=== PATIENT | male | born 1955 | race Caucasian/White ===

== ENCOUNTER → 2016-05-21 | Outpatient (CLI) | payer BC ==
--- NOTE | 2016-05-21 19:57 | MR ---
EXAMINATION TYPE: MR shoulder RT wo con DATE OF EXAM: 05/21/2016 7:42 PM COMPARISON: NONE HISTORY: Right shoulder pain TECHNIQUE: Multiplanar, multisequence imaging of the right shoulder is performed without contrast. FINDINGS: Rotator Cuff: There is diffuse intrasubstance signal thickening of the distal margin of the infraspin atus and supraspinatus tendons compatible with severe tendinosis. There is a through thickness partia l tear involving the anterior fibers of the supraspinatus tendon measuring 1.4 x 0.9 cm. No significa nt retraction. Intrasubstance degeneration and tear within the infraspinatus tendon suspected. No thr ough thickness tear. Acromioclavicular Joint: Hypertrophic change of the AC joint is noted. This does resolve impression m ass effect upon the supraspinatus tendon and muscle. Glenohumeral Joint: There is elevation of the humerus relative to the glenoid. Tiny amount of fluid n oted within the joint space. Labrum: There is abnormal morphology appears anterior labrum suggestive of a SLAP tear. Additionally appears to be Labral cyst along the inferior margin of the posterior inferior labrum. Findings suggestive of tear. Biceps Tendon: There is increased fluid surrounding the biceps tendon which remains within the bicipi nadira groove. There appears to be increased intrasubstance signal within the intracapsular portion of t he tendon compatible severe tendinosis or partial intrasubstance tear. Bone marrow signal: A cystic change involving the humeral head. IMPRESSION: 1. Severe tendinosis of the supraspinatus and infraspinatus tendons with partial through thickness te ar measuring 1.5 x 0.9 cm anterior fibers supraspinatus tendon. Intrasubstance degeneration and parti al tear of the infraspinatus with no retraction. 2. SLAP tear 3. Labral cyst along the inferior margin of the glenoid suggestive of inferior labral tear. 4. Bicipital tendinosis. Intrasubstance tear involving the intracapsular portion of the tendon suspec eddy. No retraction.
== END | disposition home or self-care (01) ==
LOC: RADMRIMAIN 18:44
PROVIDERS: ATTEND Family Medicine
DX: S43.431A Superior glenoid labrum lesion of right shoulder, initial encounter (principal); M67.813 Other specified disorders of tendon, right shoulder

== ENCOUNTER → 2017-05-29 | Outpatient (CLI) | payer BC ==
[2017-05-29 08:54] LABS: Blood Urea Nitrogen 17 mg/dL (9-20)
--- NOTE | 2017-05-29 10:28 | CT ---
EXAMINATION TYPE: CT abdomen pelvis w con DATE OF EXAM: 05/29/2017 COMPARISON: 12/08/2011 HISTORY: Umbilical hernia CT DLP: 1618.6 mGycm Automated exposure control for dose reduction was used. CONTRAST: CT scan of the abdomen pelvis is performed with IV Contrast, patient injected with 100 mL of Isovue 3 00. FINDINGS- LUNG BASES-the heart is prominent. LIVER/GB-postcholecystectomy changes noted. Area of low attenuation involving the left lobe liver mos t likely related to focal area of fatty infiltration and appears to be increased from prior exam PANCREAS- No gross abnormality is seen. SPLEEN- No gross abnormality is seen. ADRENALS- No gross abnormality is seen. KIDNEYS/BLADDER- no hydronephrosis nephrolithiasis or renal mass. BOWEL-bowel gas pattern nonspecific. Fatty replacement of the bowel within the right colon is stable from the previous exam is a nonspecific finding can be associated with certainty conditions including inflammatory bowel disease. Diverticulosis of the sigmoid colon noted.. LYMPH NODES- No greater than 1cm abdominal or pelvic lymph nodes. OSSEOUS STRUCTURES- No significant abnormality is seen. Hypertrophic change and degenerative change of the spine noted. OTHER- along the medial margin of the rectus abdominal muscle on the right there is a fascial defect with herniation of intraperitoneal fat into the subcutaneous tissues compatible with a hernia. Previous surgery involving the left inguinal region noted with abnormal attenuation likely in the bas is of postsurgical scar. IMPRESSION- 1. There is an anterior abdominal wall hernia along the medial margin of the right rectus muscle cont aining peritoneal fat. No bowel contained. The neck of the hernia measures approximately 1.2 cm. 2. Fatty replacement of the wall the right colon stable from the previous exam of 2011 is a nonspeci fic finding. This can be associated with certain conditions including inflammatory bowel disease jenifer elate clinically. 3. There is a area of low attenuation in the left lobe of the liver most likely in the basis of focal fatty infiltration. This appears increased from the prior exam and could be correlated with ultrasou nd as clinically warranted.
== END | disposition home or self-care (01) ==
LOC: RADCTMAIN 07:54
PROVIDERS: ATTEND Surgery
DX: K43.9 Ventral hernia without obstruction or gangrene (principal); R93.2 Abnormal findings on diagnostic imaging of liver and biliary tract
CPT/HCPCS: 82565; 84520; 74177; 36415; Q9967

== ENCOUNTER → 2017-07-01 | Outpatient (CLI) | payer BC ==
[2017-07-01 12:56] LABS: HCT 49.1 % (39.0-53.0); HGB 15.8 gm/dL (13.0-17.5); MCH 28.4 pg (25.0-35.0); MCHC 32.2 g/dL (31.0-37.0); MCV 88.3 fL (80.0-100.0); Mean Platelet Volume 7.6; Platelet Count 251 k/uL (150-450); RBC 5.56 m/uL (4.30-5.90); RDW 13.2 % (11.5-15.5); WBC 7.9 k/uL (3.8-10.6)
[2017-07-01 13:12] LABS: ALT 17 U/L (21-72); AST 20 U/L (17-59); Albumin 4.3 g/dL (3.5-5.0); Alkaline Phosphatase 72 U/L (38-126); Anion Gap 14 mmol/L; Blood Urea Nitrogen 16 mg/dL (9-20); Calcium 9.4 mg/dL (8.4-10.2); Carbon Dioxide 30 mmol/L (22-30); Chloride 101 mmol/L (98-107); Glucose 91 mg/dL (74-99); Potassium 4.3 mmol/L (3.5-5.1); Sodium 145 mmol/L (137-145); Total Bilirubin 0.6 mg/dL (0.2-1.3); Total Protein 7.2 g/dL (6.3-8.2)
== END | disposition home or self-care (01) ==
LOC: LABWHC1 12:06
PROVIDERS: ATTEND Internal Medicine Cardiovascular Disease
DX: I50.9 Heart failure, unspecified (principal); I42.9 Cardiomyopathy, unspecified
CPT/HCPCS: 36415; 80053; 83880; 85027

== ENCOUNTER 2017-07-06 09:21 | Day surgery (SDC) | payer BC ==
[2017-07-01 15:57] VITALS: BMI 31.6
[~2017-07-06 09:21] MED LIST: ALPRAZolam 0.25 MG TAB PO PRN; ASPIRIN 325 MG TAB PO ONE; SODIUM CHLORIDE 0.9% 1,000 ML in EMPTY BAG 1 BAG IV ONE
[2017-07-06 09:39] VITALS: TEMP 97.7
[2017-07-06] MEDS ORDERED: fentaNYL (PF) 50 MCG/ML 2 ML AMP ONE (10:10)
[2017-07-06] MEDS ORDERED: MIDAZOLAM 2 MG/2 ML VIAL ONE (10:10)
[2017-07-06] MEDS ORDERED: fentaNYL (PF) 50 MCG/ML 2 ML AMP IV ONE (10:18)
[2017-07-06] MEDS ORDERED: MIDAZOLAM 2 MG/2 ML VIAL IV ONE (10:19)
[2017-07-06] MEDS ORDERED: LIDOCAINE 2% INJ 20 MG/ML SQ ONE (10:22)
[2017-07-06] MEDS ORDERED: IOPAMIDOL-300 50ML BTL INJ ONE (10:36)
[2017-07-06] MEDS ORDERED: IOPAMIDOL-370 125ML BTL INJ ONE (10:38)
[2017-07-06] MEDS ORDERED: RX INFO: IV CONTRAST WAS GIVEN 1 EACH MISC MISCELLANE PRN (10:56)
[2017-07-06] MEDS ORDERED: SODIUM CHLORIDE 0.9% 1,000 ML IV SCH (11:00)
--- NOTE | 2017-07-06 11:15 | P.PCN ---
Date of Procedure: 07/06/17 Preoperative Diagnosis: Cardiomyopathy, CHF, family history of ischemic or disease Postoperative Diagnosis: Cardiomyopathy, ischemic heart disease with a critical lesion in the PDA and intermittent disease in the proximal and mid LAD Procedure(s) Performed: Left heart catheterization with left ventriculography Description of Procedure: HISTORY: This is a 61-year-old gentleman with history of coronary artery disease in the family who was recently going to have hernia operation and was noted to have frequent PVCs. Patient echocardiogram showed an ejection fraction of 30-35%. Patient had similar findings into thousand 15. Patient was initiated on Coreg, Aldactone and and lisinopril. He is advised to have cardiac catheterization to rule out underlying ischemic heart disease. CONSENT:I have discussed the risks, benefits and alternative therapies for the above-mentioned procedure and for both sedation/analgesia as well as necessary blood product administration, if indicated, as they pertain to this patient. The patient has indicated understanding and acceptance of the risks and procedures discussed. [] PROCEDURE: Patient was brought to the lab in a fasting state. Patient was given some IV sedation. The right groin is infiltrated with lidocaine and right femoral artery was entered using Seldinger technique. A 6-Romansh catheter was left in place and selective coronary arteriography and left ventriculography was performed. Patient tolerated the procedure well. Femoral angiogram was performed and Manual compression was applied for hemostasis. No immediate complications were noted and patient was transferred to [facility] in a stable condition Conscious Sedation: Versed 1mg Fentanyl 50 g Duration []minutes HEMODYNAMICS: The aortic pressure is about 110/70. The left ventricular end- diastolic pressure is 20.There was no gradient across the aortic valve. SELECTIVE CORONARY ARTERIOGRAPHY: LEFT MAIN: Normal length and at 3 of any occlusive disease. THE LEFT ANTERIOR DESCENDING CORONARY ARTERY: There is calcification noted in the proximal segment. There appears to be diffuse disease involving the proximal and mid LAD with about 40-50% luminal narrowing. There is a suspicion lesion of the origin of the diagonal but doesn't appear to be critical.The diagonal branch is a large caliber vessel and has mild disease proximally. THE LEFT CIRCUMFLEX AND IS CORONARY ARTERY: This is a moderate caliber vessel and seemed to be free of any significant focal disease THE RIGHT CORONARY ARTERY: This is a dominant vessel giving rise to good-sized PDA branch. The PDA branch has 70-80% stenosis in the midportion. Beyond the lesion the vessel has a limited distribution. LEFT VENTRICULOGRAPHY: Showed a dilated left ventricle with generalized hypokinesia with an ejection fraction about 25 to 30% FINAL IMPRESSION: #1. Nonischemic cardiomyopathy. #2. Coronary artery disease involving the LAD and also PDA of the RCA. The LAD lesion and appears to be intermediate. The RCA lesion is a significant but beyond the lesion, There appears to be limited distribution. PLAN:Discussed with Dr. SHANTI Owens who is the on-call mortgage originator. It was felt that we'll continue maximal medical therapy and evaluate him by stress test to see if there is any ischemic burden. If there is a significant ischemic burden either in the RCA or LAD distribution, interventional be entertained. Patient also may be candidate for AICD implantation. If the LV function doesn't improve with medical therapy. PROGNOSIS: Guarded
[2017-07-06] MEDS ORDERED: MORPHINE SULFATE 4 MG/0.8 ML SYRINGE (INJ) IVP STA (13:30)
[2017-07-06] MEDS ORDERED: MORPHINE SULF 5MG/10ML VL ONE (13:36)
[2017-07-06 13:50] VITALS: BP 109/72; PULSE 77; RESP 18
== END 2017-07-06 18:20 | disposition home or self-care (01) ==
LOC: CATHCVL 09:21
PROVIDERS: ATTEND Internal Medicine Cardiovascular Disease
DX: I25.10 Atherosclerotic heart disease of native coronary artery without angina pectoris (principal); I25.84 Coronary atherosclerosis due to calcified coronary lesion; Z87.891 Personal history of nicotine dependence; I50.22 Chronic systolic (congestive) heart failure; I49.3 Ventricular premature depolarization; Z82.49 Family history of ischemic heart disease and other diseases of the circulatory system; I42.9 Cardiomyopathy, unspecified; Z79.899 Other long term (current) drug therapy
CPT/HCPCS: 93458; C1894; C1769; J2001; J2250; J3010; Q9967 ×2; J2270

== ENCOUNTER → 2017-08-28 | Outpatient (CLI) | payer BC | END | disposition home or self-care (01) | LOC: LABWHC1 12:26 | DX: I42.0 Dilated cardiomyopathy (principal); I49.3 Ventricular premature depolarization; I10 Essential (primary) hypertension; I25.10 Atherosclerotic heart disease of native coronary artery without angina pectoris | CPT/HCPCS: 36415; 80048 ==

== ENCOUNTER 2017-11-02 11:19 | Day surgery (SDC) | payer BC ==
[2017-10-28 10:27] VITALS: BMI 33.5
[~2017-11-02 11:19] MED LIST changes: -ALPRAZolam 0.25 MG TAB PO PRN; -ASPIRIN 325 MG TAB PO ONE; +MIDAZOLAM 2 MG/2 ML VIAL IV PRN; -SODIUM CHLORIDE 0.9% 1,000 ML in EMPTY BAG 1 BAG IV ONE; +ceFAZolin 1,000 MG in SODIUM CHLORIDE 0.9% IRRIGATIO 250 ML IRRIGATION ONE; +ceFAZolin IN SWFI 2 GM/20 ML SYRINGE IVP ONE; +fentaNYL (PF) 50 MCG/ML 2 ML AMP IV PRN
[2017-11-02] MEDS: SODIUM CHLORIDE 0.9% 1,000 ML IV SCH (11:55)
[2017-11-02 12:05] LABS: Basophils # (A) 0.1 k/uL (0-0.2); Basophils % (A) 1 %; Eosinophils # (A) 0.1 k/uL (0-0.7); Eosinophils % (A) 2 %; HCT 42.2 % (39.0-53.0); Lymphocytes # (A) 1.2 k/uL (1.0-4.8); Lymphocytes % (A) 18 %; MCH 29.3 pg (25.0-35.0); MCHC 33.3 g/dL (31.0-37.0); MCV 88.2 fL (80.0-100.0); Mean Platelet Volume 7.6; Monocytes # (A) 0.5 k/uL (0-1.0); Monocytes % (A) 8 %; Neutrophils # (A) 4.7 k/uL (1.3-7.7); Neutrophils % (A) 70 %; Platelet Count 240 k/uL (150-450); RBC 4.79 m/uL (4.30-5.90); RDW 13.1 % (11.5-15.5); WBC 6.8 k/uL (3.8-10.6)
[2017-11-02 12:12] LABS: Anion Gap 9 mmol/L; Blood Urea Nitrogen 20 mg/dL (9-20); Calcium 8.7 mg/dL (8.4-10.2); Carbon Dioxide 23 mmol/L (22-30); Chloride 108 mmol/L (98-107); Glucose 100 mg/dL (74-99); Potassium 4.5 mmol/L (3.5-5.1); Sodium 140 mmol/L (137-145)
[2017-11-02] MEDS ORDERED: PROPOFOL 10 MG/ML 20 ML VIAL IV ONE (14:09)
[2017-11-02] MEDS ORDERED: fentaNYL (PF) 50 MCG/ML 2 ML AMP ONE (14:09)
[2017-11-02] MEDS ORDERED: HYDROmorphone (PF) 1 MG/ML ONE (14:09)
[2017-11-02] MEDS ORDERED: MIDAZOLAM 2 MG/2 ML VIAL ONE (14:09)
[2017-11-02] MEDS ORDERED: LIDOCAINE 1% INJ 10MG/ML (20 ML MDV) ONE (14:32)
[2017-11-02] MEDS ORDERED: LIDOCAINE 1% INJ 10MG/ML (20 ML MDV) SQ ONE (14:56)
[2017-11-02] MEDS ORDERED: ACETAMINOPHEN IV (For NPO) 1,000 MG in EMPTY BAG 1 BAG IVPB ONE (15:54)
[2017-11-02] MEDS ORDERED: ACETAMINOPHEN TAB 325 MG TAB PO PRN (15:54)
--- NOTE | 2017-11-02 16:51 | CE ---
CARDIAC ELECTROPHYSIOLOGY REPORT Sarthak Bentley is a 61-year-old patient of Dr. Carolina and Dr. Salomon MMANNIKAL / IJN: [id number] /
--- NOTE | 2017-11-02 16:57 | CE ---
CARDIAC ELECTROPHYSIOLOGY REPORT Sarthak Bentley is a 61-year-old patient of Dr. Carolina and Dr. Conner Nguyen who has had cardiomyopathy with class 2 heart failure for greater than 3 years. He is on medical treatment for this. He has frequent PVCs, ventricular couplets, CHF class 2, right bundle branch block pattern on 12-lead ECG, ejection fraction 35%. He was brought in for a single-chamber ICD implant for primary prevention of sudden cardiac . He has predominantly non-ischemic cardiomyopathy with coronary artery disease involving the PDA only. Patient was brought to the EP lab in a fasting state. Written informed consent was obtained prior to the procedure. The left shoulder area was prepped and draped as per protocol. Lidocaine 1% was used for local anesthesia. A 4 cm incision was made parallel to the deltopectoral groove, about 1.5 cm medial to it. The incision was carried down to the level of the pectoralis muscle. A subfascial pocket was made. Hemostasis was assured. The left axillary vein was accessed at a single point under fluoroscopy, and via an appropriately sized introducer sheath a lead was positioned in the right heart. This was a [employer] model #[id number], 65 cm in length, and serial #[id number]. This was positioned in the high RV septum and screwed in. The nlgiokd-ro-vqjliu protocol was used. The R-waves 12 mV. Pacing impedance 640 ohms, Pacing threshold 0.75 V at 0.5 milliseconds. Ten-volt test was negative. The lead was secured to the underlying pectoralis fascia using 2 non-absorbable sutures. Pocket was irrigated with antibiotic solution. Leads were connected to the generator ([employer] model #[id number], serial #[id number]). Leads and generator were then placed into the subfascial pocket and the wound was closed in 3 layers and dressed per protocol. RESULTS: Successful single-chamber ICD implantation for primary prevention of sudden cardiac with underlying non-ischemic cardiomyopathy of long-standing of almost 3 years, ejection fraction 35%, on guideline-directed medical treatment, and underlying right bundle branch block with congestive heart failure class 2. The patient tolerated the procedure well without any acute complications. MADIT RIT programming was performed. Back-up pacing at 40 beats per minute was programmed, sensitivity 0.5. PLAN: DFT testing deferred until 3 months. CINTHIA / OBDULION: [id number] /
--- NOTE | 2017-11-02 16:57 | LTR ---
To: Dr. Salomon Patrick From: Dr. Jose Willis Re: Sarthak Bentley (59) Dear Aime, I had the pleasure of seeing Sarthak Bentley in electrophysiology followup. Sarthak underwent single-chamber ICD implantation for primary prevention of sudden cardiac . He did well during the procedure without any acute complications and will be discharged home tomorrow after completion of IV antibiotics and device interrogation. He will continue to follow up with you and Dr. Carolina as before. Thank you for entrusting us with the care of the patient. Warm regards. sincerely, Jose VICENTE / OBDULION: [id number] /
[2017-11-02 17:05] LABS: Glucose,Whole Blood 138 mg/dL (75-99)
[2017-11-02] MEDS: LACTATED RINGERS 1,000 ML IV SCH (19:18)
[2017-11-02] MEDS: CARVEDILOL 3.125 MG TAB PO SCH (19:35)
[2017-11-02] MEDS: ceFAZolin IN SWFI 2 GM/20 ML SYRINGE IVP SCH (19:36)
[2017-11-02] MEDS: HYDROcodone/APAP 5-325MG 1 EACH TAB PO PRN (19:59)
[2017-11-02] MEDS: BRIMONIDINE TARTRATE 0.2% DROPS 5 ML BTL BOTH EYES SCH (20:33)
[2017-11-02] MEDS ORDERED: LATANOPROST 0.005% OPHTH DROPS 2.5 ML BTL BOTH EYES SCH (21:00)
[2017-11-02] MEDS ORDERED: ALPRAZolam 0.25 MG TAB PO SCH (21:00)
[2017-11-03] MEDS: ceFAZolin IN SWFI 2 GM/20 ML SYRINGE IVP SCH ×3 (00:41→12:29)
[2017-11-03] MEDS: HYDROcodone/APAP 5-325MG 1 EACH TAB PO PRN ×3 (00:41→11:49)
[2017-11-03] MEDS: BRIMONIDINE TARTRATE 0.2% DROPS 5 ML BTL BOTH EYES SCH ×2 (00:44→08:34)
[2017-11-03] MEDS: SODIUM CHLORIDE 0.9% 1,000 ML IV SCH (01:04)
[2017-11-03 03:47] VITALS: RESP 18
[2017-11-03] MEDS: CARVEDILOL 3.125 MG TAB PO SCH (06:18)
[2017-11-03] MEDS: LACTATED RINGERS 1,000 ML IV SCH (06:42)
[2017-11-03] MEDS ORDERED: SPIRONOLACTONE 25 MG TAB PO SCH (09:00)
[2017-11-03] MEDS ORDERED: ASPIRIN 81 MG PO SCH (09:00)
[2017-11-03] MEDS ORDERED: ATORVASTATIN 40 MG TAB PO SCH (09:00)
--- NOTE | 2017-11-03 10:13 | XR ---
EXAMINATION TYPE: XR chest 2V DATE OF EXAM: 11/03/2017 COMPARISON: NONE HISTORY: Lead placement check TECHNIQUE: Frontal and lateral views of the chest are obtained. FINDINGS: There is a generator in the left pectoral region, there is a lead in the right ventricle. No pneumothorax or pleural effusion. Cardiac mediastinal silhouette, pulmonary vascularity and cam[place] a re within normal limits accounting for technique, patient is rotated. Surgical clips in the upper abd omen. IMPRESSION: No evident complication status post defibrillator placement.
--- NOTE | 2017-11-03 11:05 | P.DS ---
Providers Attending physician: Jose Willis Primary care physician: [facility] Course: Patient is doing well. He is resting comfortably in bed. No hematoma no dizziness lightheadedness or palpitations ICD site is healed well. ICD interrogation today is within normal limits chest x-ray is within normal limits Afebrile 97.4F, pulse rate in the 70s, blood pressure 117/69 mmHg Heart sounds are normal and irregular with premature beats Breath sounds are clear Abdomen soft ICD site is healed well No edema Plan Discharge home after completion of IV antibiotics and follow-up with device clinic in [address] Warren Patient Condition at Discharge: Stable Plan - Discharge Summary Discharge Rx Participant: No New Discharge Prescriptions: Continue Multivitamins, Thera [Multivitamin (formulary)] 1 tab PO DAILY Spironolactone [Aldactone] 25 mg PO DAILY Carvedilol [Coreg] 3.125 mg PO BID Xanax (Unknown Dose) 1 tab PO DIRECTED PRN PRN Reason: Anxiety Aspirin [Adult Low Dose Aspirin EC] 81 mg PO DAILY Atorvastatin [Lipitor] 40 mg PO DAILY Discharge Medication List Aspirin [Adult Low Dose Aspirin EC] 81 mg PO DAILY 07/01/17 [History] Carvedilol [Coreg] 3.125 mg PO BID 07/01/17 [History] Multivitamins, Thera [Multivitamin (formulary)] 1 tab PO DAILY 07/01/17 [History ] Spironolactone [Aldactone] 25 mg PO DAILY 07/01/17 [History] Xanax (Unknown Dose) 1 tab PO DIRECTED PRN 07/01/17 [History] Atorvastatin [Lipitor] 40 mg PO DAILY 11/02/17 [History] Follow up Appointment(s)/Referral(s): Kojo Carolina MD [STAFF PHYSICIAN] - 1 Week (Device clinic follow-up in 5 days Follow-up with Dr. Warren as previously scheduled or in 6-8 weeks) Activity/Diet/Wound Care/Special Instructions: PATIENT EDUCATION MATERIAL Instructions following a heart rhythm device implant. 1. Keep dressing DRY for 5 DAYS. You may cover the area with Saran or Cling Wrap, prior to a shower. 2. The dressing will be removed in the Device Clinic at [facility]. Absorbable sutures were used to close the wound. 3. Avoid raising the left arm above the shoulder level. 4 week restriction 4. Avoid arm movements, like backscratching, rubbing the head, or pulling on a cord. 4 weeks restriction 5. Gentle range of motion movements of the shoulder, closest to the incision should be performed to avoid a frozen shoulder. (Pendulum exercises of the shoulder) 6. The opposite arm may be used freely. 7. Avoid driving for 7 days. 8. Avoid activities such as golfing, swimming, weed whacking, lifting more than 10 pounds weight, bowling, gymnastics and weight training/lifting. (6 weeks restriction) 9. Activities such as wood chopping with an axe, pull-ups in the gymnasium, power lifting, arc-welding, being close to home induction cooktops will always be a problem. 10. Arm sling is only a reminder not to raise the arm above the head. You do not need to keep the arm completely immobilized. Your free to move the arm and use it and for normal activities. In case of any problems, please call [facility], [place], @ [phone], Attention: Device Clinic Device clinic follow-up in 5 days Follow-up with primary mortgage servicing specialist, Dr. Warren in 6-8 weeks No changes in medications Discharge Disposition: HOME SELF-CARE
--- NOTE | 2017-11-03 11:05 | P.DS ---
Providers Attending physician: Jose Willis Primary care physician: [facility] Course: Patient underwent single chamber ICD implantation yesterday [employer] single coil single-chamber DF 4 ICD Impression Chronic predominantly nonischemic cardiomyopathy Known single-vessel coronary artery disease in the PDA Ejection fraction 35% chronic systolic Right bundle branch block Frequent PVCs and ventricular couplets CHF class On Edwards written medical treatment Chronic current myopathy for at least 3 years despite medical treatment Hypertension Dyslipidemia nicotine dependence On aspirin Lasix atorvastatin losartan and spironolactone at home Continue current medications Discharge home after completion of IV antibiotics chest x-ray and device interrogation and follow-up in the device clinic in 5 days and follow with Dr. Warren as previously scheduled Plan - Discharge Summary New Discharge Prescriptions: No Action Multivitamins, Thera [Multivitamin (formulary)] 1 tab PO DAILY Spironolactone [Aldactone] 25 mg PO DAILY Carvedilol [Coreg] 3.125 mg PO BID Xanax (Unknown Dose) 1 tab PO DIRECTED PRN PRN Reason: Anxiety Aspirin [Adult Low Dose Aspirin EC] 81 mg PO DAILY Atorvastatin [Lipitor] 40 mg PO DAILY Discharge Medication List Aspirin [Adult Low Dose Aspirin EC] 81 mg PO DAILY 07/01/17 [History] Carvedilol [Coreg] 3.125 mg PO BID 07/01/17 [History] Multivitamins, Thera [Multivitamin (formulary)] 1 tab PO DAILY 07/01/17 [History ] Spironolactone [Aldactone] 25 mg PO DAILY 07/01/17 [History] Xanax (Unknown Dose) 1 tab PO DIRECTED PRN 07/01/17 [History] Atorvastatin [Lipitor] 40 mg PO DAILY 11/02/17 [History]
[2017-11-03 13:22] VITALS: BP 120/80; PULSE 75; TEMP 97.4
== END 2017-11-03 14:24 | disposition home or self-care (01) ==
LOC: CATHEP 11:19 → 6SEL 15:50 → CATHEP 11-03 14:24
PROVIDERS: ATTEND Internal Medicine Clinical Cardiac Electrophysiology
DX: I42.8 Other cardiomyopathies (principal); Z00.6 Encounter for examination for normal comparison and control in clinical research program; I45.10 Unspecified right bundle-branch block; I25.10 Atherosclerotic heart disease of native coronary artery without angina pectoris; I11.0 Hypertensive heart disease with heart failure; I50.22 Chronic systolic (congestive) heart failure; F17.210 Nicotine dependence, cigarettes, uncomplicated; E78.5 Hyperlipidemia, unspecified; I49.3 Ventricular premature depolarization; Z79.82 Long term (current) use of aspirin; Z79.899 Other long term (current) drug therapy; Z82.49 Family history of ischemic heart disease and other diseases of the circulatory system
CPT/HCPCS: 33249; 80048; 85025; 71046; C1769 ×3; C1892 ×2; C1722; C1777; J2250; J0690 ×3; J2001; J3010; J1170; J2704

== ENCOUNTER → 2019-01-13 | Outpatient (CLI) | payer BC ==
--- NOTE | 2019-01-13 08:32 | CT ---
EXAMINATION TYPE: CT abdomen pelvis wo con DATE OF EXAM: 01/13/2019 HISTORY: Diverticulitis per order. Right-sided Abdominal and pelvic pain and swelling, history of her yoni repair per patient. CT DLP: 1128 mGycm. Automated Exposure Control for Dose Reduction was Utilized. TECHNIQUE: CT scan of the abdomen and pelvis is performed without oral or IV contrast. COMPARISON: CT abdomen and pelvis May 29, 2017 FINDINGS: Within the limitations of a non-contrast study, the following observations are made. LUNG BASES: No significant abnormality is appreciated. LIVER/GB: Cholecystectomy clips are redemonstrated. PANCREAS: No significant abnormality is seen. SPLEEN: No significant abnormality is seen. ADRENALS: No significant abnormality is seen. KIDNEYS: No renal stones or hydronephrosis is present bilaterally. BOWEL: Evaluation bowel slightly suboptimal secondary to lack of enteric contrast. No suspicious smal l or large bowel dilatation. Diverticula are identified throughout the left and sigmoid colon. No CT evidence for acute diverticulitis. Persistent fatty replacement of the wall of the right colon. GENITAL ORGANS: Upper limits of normal in size bulging of bladder base. Adjacent pelvic phleboliths. LYMPH NODES: No greater than 1cm abdominal or pelvic lymph nodes are appreciated. Mild nonspecific miranda ziness left-sided mesenteric fat with prominent but subcentimeter lymph nodes is redemonstrated. OSSEOUS STRUCTURES: Fairly symmetric moderate narrowing of both hip joints. Some narrowing and sclero sis bilateral sacroiliac joints. OTHER: Numerous Surgical clips from left inguinal hernia repair surgery left groin level. No recurren t hernia is seen. Stable right mid abdominal incisional hernia axial image 82 containing fat and tiny mesenteric vessels. IMPRESSION: Distal colonic diverticulosis without CT evidence for acute diverticulitis. No recurrent inguinal hernia. No new or acute findings evident to account for patient's symptoms.
== END | disposition home or self-care (01) ==
LOC: RADCTMAIN 07:58
PROVIDERS: ATTEND Surgery Plastic and Reconstructive Surgery
DX: K57.30 Diverticulosis of large intestine without perforation or abscess without bleeding (principal)
CPT/HCPCS: 74176

== ENCOUNTER 2021-03-08 06:37 | Day surgery (SDC) | payer BC ==
[2021-02-18 11:52] VITALS: BMI 30.4
[~2021-03-08 06:37] MED LIST changes: +DEXAMETHASONE SOD PHOSPHATE 4 MG/ML 1 ML VIAL IV ONE; +HEPARIN SODIUM,PORCINE/PF 5,000 UNIT/0.5 ML SYRINGE SQ PRN; +LACTATED RINGERS 1,000 ML IV SCH; -MIDAZOLAM 2 MG/2 ML VIAL IV PRN; +ONDANSETRON 4 MG/2 ML VIAL IVP ONE; -ceFAZolin 1,000 MG in SODIUM CHLORIDE 0.9% IRRIGATIO 250 ML IRRIGATION ONE; -ceFAZolin IN SWFI 2 GM/20 ML SYRINGE IVP ONE; -fentaNYL (PF) 50 MCG/ML 2 ML AMP IV PRN
[2021-03-08] MEDS ORDERED: ACETAMINOPHEN TAB 500 MG TAB PO STA (07:16)
[2021-03-08] MEDS ORDERED: GABAPENTIN 300 MG CAP PO STA (07:16)
[2021-03-08] MEDS ORDERED: TAMSULOSIN 0.4 MG CAP.ER.24H PO STA (07:16)
--- NOTE | 2021-03-08 07:16 | P.GSHP ---
History of Present Illness H&P Date: 03/08/21 CHIEF COMPLAINT: Ventral hernia HISTORY OF PRESENT ILLNESS: The patient is a 65-year-old male presents with swelling and pain along the abdomen from a hernia including right inguinal hernia. Symptoms have been present for over 1 month. Now he presents for surgical intervention. PAST MEDICAL HISTORY: Please see list. PAST SURGICAL HISTORY: Please see list. MEDICATIONS: Please see list. ALLERGIES: Please see list. SOCIAL HISTORY: No illicit drug use FAMILY HISTORY: No reports of Crohn disease or ulcerative colitis. REVIEW OF ORGAN SYSTEMS: CONSTITUTIONAL: No reports of fevers or chills. No reports of weight loss despite prior attempts. GI: Denies any blood in stools or constipation. PHYSICAL EXAM: VITAL SIGNS: Stable GENERAL: Well-developed pleasant male in no acute distress. HEENT: No scleral icterus. Extraocular movements grossly intact. Moist buccal mucosa. NECK: Supple without lymphadenopathy. CHEST: Unlabored respirations. Equal bilateral excursions. CARDIOVASCULAR: Regular rate and rhythm. Distal 2+ pulses. ABDOMEN: Soft, nondistended. Palpable defect of the abdomen. No peritoneal signs. MUSCULOSKELETAL: No clubbing, cyanosis, or edema. ASSESSMENT: 1. Ventral hernia PLAN: 1. Recommend proceeding with robotic incisional/ventral repair with mesh. 2. Benefits and risks of surgical intervention was discussed including possibility of open technique. 3. DVT prophylaxis. 4. Antibiotic prophylaxis. 5. Non narcotic pain management including abdominal wall block described Past Medical History Past Medical History: Eye Disorder, GERD/Reflux, Hearing Disorder / Deafness, Hyperlipidemia, Hypertension, Osteoarthritis (OA) Additional Past Medical History / Comment(s): Irregular heartbeat. Has hearing aids but does not use them. Bilateral glaucoma. this surgery was rescheduled by surgeon lluvia History of Any Multi-Drug Resistant Organisms: None Reported Past Surgical History: AICD, Cholecystectomy, Heart Catheterization, Hernia Repair Additional Past Surgical History / Comment(s): Hernia surgery X8, 1 testicle removed. Past Anesthesia/Blood Transfusion Reactions: No Reported Reaction Type of Cardiac Device: AICD Device Placement Date:: 11/02/17 [facility] Past Psychological History: No Psychological Hx Reported Smoking Status: Former smoker Past Alcohol Use History: None Reported Additional Past Alcohol Use History / Comment(s): Quit smoking >30 yrs ago., smoked for 10-15 yrs. Past Drug Use History: None Reported - Past Family History Father Family Medical History: No Reported History Medications and Allergies Home Medications Medication Instructions Recorded Confirmed Type ALPRAZolam [Xanax] 0.5 mg PO HS PRN #0 07/01/17 03/04/21 History Aspirin [Adult Low Dose Aspirin EC] 81 mg PO DAILY 07/01/17 03/04/21 History Multivitamins, Thera [Multivitamin 1 tab PO DAILY 07/01/17 03/04/21 History (formulary)] Spironolactone [Aldactone] 25 mg PO DAILY 07/01/17 03/04/21 History carvediloL [Coreg] 6.25 mg PO BID 07/01/17 03/04/21 History Atorvastatin [Lipitor] 40 mg PO DAILY 11/02/17 03/04/21 History Losartan [Cozaar] 25 mg PO DAILY 02/18/21 03/04/21 History Allergies Allergy/AdvReac Type Severity Reaction Status Date / Time No Known Allergies Allergy Verified 03/04/21 12:36
[2021-03-08] MEDS ORDERED: MELOXICAM 7.5 MG TAB PO SCH (07:30)
[2021-03-08] MEDS ORDERED: LIDOCAINE 1% (10MG/ML) FOR IV START INTRADERMA ONE (07:40)
[2021-03-08 07:50] LABS: Basophils % (A) 0 %; Eosinophils # (A) 0.2 k/uL (0-0.7); Eosinophils % (A) 4 %; HCT 41.1 % (39.0-53.0); HGB 13.7 gm/dL (13.0-17.5); Lymphocytes # (A) 1.2 k/uL (1.0-4.8); Lymphocytes % (A) 25 %; MCH 30.6 pg (25.0-35.0); MCHC 33.4 g/dL (31.0-37.0); MCV 91.8 fL (80.0-100.0); Mean Platelet Volume 7.3; Monocytes # (A) 0.4 k/uL (0-1.0); Monocytes % (A) 8 %; Neutrophils # (A) 2.9 k/uL (1.3-7.7); Neutrophils % (A) 60 %; Platelet Count 203 k/uL (150-450); RBC 4.48 m/uL (4.30-5.90); RDW 12.4 % (11.5-15.5); WBC 4.9 k/uL (3.8-10.6)
[2021-03-08] MEDS ORDERED: MIDAZOLAM 2 MG/2 ML VIAL IV ONE (07:55)
[2021-03-08 08:09] LABS: Glucose,Whole Blood 99 mg/dL (75-99)
[2021-03-08] MEDS ORDERED: MIDAZOLAM 2 MG/2 ML VIAL ONE (08:21)
[2021-03-08] MEDS ORDERED: ROPIVACAINE 5 MG/ML 30 ML VIAL ONE (08:21)
[2021-03-08] MEDS ORDERED: PHENYLEPHRINE-0.9% NACL SYG 1,000 MCG/10 ML SYRINGE ONE (08:21)
[2021-03-08] MEDS ORDERED: KETOROLAC 15 MG/ML 1 ML VIAL ONE (08:21)
[2021-03-08] MEDS ORDERED: ROCURONIUM 10 MG/ML (5 ML VIAL) IV ONE (08:21)
[2021-03-08] MEDS ORDERED: SUCCINYLCHOLINE CHLORIDE 100 MG/5 ML SYR IV ONE (08:21)
[2021-03-08] MEDS ORDERED: fentaNYL (PF) 50 MCG/ML 2 ML AMP ONE (08:21)
[2021-03-08] MEDS ORDERED: PROPOFOL 10 MG/ML 20 ML VIAL IV ONE (08:21)
[2021-03-08] MEDS ORDERED: LIDOCAINE 1% INJ 10MG/ML (20 ML MDV) ONE (08:21)
--- NOTE | 2021-03-08 08:21 | P.ANPRN ---
Procedure Note - Anesthesia - Nerve Block Performed Bilateral Erector Spinae Single Time Out Performed: Yes ([id number]) Date of Procedure: 03/08/21 Procedure Start Time: 07:55 Procedure Stop Time: 08:05 Location of Patient: PreOp Indication: Acute Post-Operative Pain, Analgesia, Dx/Pain Location, Requested by Surgeon Sedation Type: Sedate with meaningful contact maintained Preparation: Sterile Prep, Sterile Dressing Position: Prone Catheter: None Needle Types: Pajunk Needle Gauge: 20 Ultrasound used to visualize needle placement: Yes Ultrasound used to observe medication spread: Yes Injectate: 0.5% Ropivacaine (see comment for volume) (25 ml of 0.5% Ropivacaine mixed with 25 ml of 0.9% NacL preservative-free - 25 ml of mixture injected on each side.)
[2021-03-08 08:24] LABS: ALT 20 U/L (4-49); AST 22 U/L (17-59); African American GFR (CKD) >90 (>60 ml/min/1.73 sqM); Albumin 3.5 g/dL (3.5-5.0); Alkaline Phosphatase 61 U/L (38-126); Anion Gap 5 mmol/L; Blood Urea Nitrogen 17 mg/dL (9-20); Calcium 8.8 mg/dL (8.4-10.2); Carbon Dioxide 26 mmol/L (22-30); Chloride 107 mmol/L (98-107); Glucose 107 mg/dL (74-99); Non-African American GFR(CKD) >90 (>60 ml/min/1.73 sqM); Potassium 3.8 mmol/L (3.5-5.1); Sodium 138 mmol/L (137-145); Total Bilirubin 0.7 mg/dL (0.2-1.3); Total Protein 6.3 g/dL (6.3-8.2)
[2021-03-08] MEDS ORDERED: BUPIVACAIN-EPI 0.25%-1:200,000 30 ML VIAL SQ ONE (08:39)
[2021-03-08] MEDS ORDERED: LACTATED RINGERS 1,000 ML IV ONE (09:20)
[2021-03-08] MEDS: HYDROmorphone 0.5 MG/0.5 ML SYRINGE IVP PRN ×4 (09:40→10:49)
[2021-03-08 09:45] VITALS: TEMP 97
[2021-03-08 10:10] VITALS: RESP 16
[2021-03-08] MEDS ORDERED: ACETAMINOPHEN TAB 325 MG TAB ONE (11:57)
[2021-03-08] MEDS ORDERED: ACETAMINOPHEN TAB 325 MG TAB PO ONE (12:00)
[2021-03-08] MEDS ORDERED: SIMETHICONE 40 MG/0.6 ML DROPS 2,000 MG/30 ML BOTTLE PO ONE (12:30)
[2021-03-08 13:06] VITALS: BP 126/78; PULSE 85
--- NOTE | 2021-03-14 11:09 | P.OP ---
Date of Procedure: 03/08/21 Description of Procedure: SURGEON: ELIZABETH LE MD PREOPERATIVE DIAGNOSES: 1. Recurrent incarcerated incisional hernia 2. Hypertensive heart disease with congestive heart failure 3. Hyperlipidemia 4. Generalized anxiety disorder 5. Cardiac arrhythmia 6. Gastroesophageal reflux disease 7. Glaucoma 8. AICD, in situ 9. Conductive hearing loss POSTOPERATIVE DIAGNOSES: 1. Recurrent incarcerated incisional hernia, 3-cm 2. Hypertensive heart disease with congestive heart failure 3. Hyperlipidemia 4. Generalized anxiety disorder 5. Cardiac arrhythmia 6. Gastroesophageal reflux disease 7. Glaucoma 8. AICD, in situ 9. Conductive hearing loss 10. Peritoneal adhesions OPERATION: 1. Robotic-assisted da Sandra Xi laparoscopic lysis of adhesions over 30 minutes 2. Robotic-assisted da Sandra Xi laparoscopic repair of recurrent incarcerated 3-cm incisional ventral hernia with mesh, ventralight ST mesh 11.4 cm Anesthesia: GETA, regional, local Estimated Blood Loss (ml): 5 Pathology: None COMPLICATIONS: None. Operative Findings: 1. Recurrent incisional hernia epigastrium ventral hernia defect 3 cm 2. Fascia repaired using #1 V-lock suture with fascial imbrication 3 INDICATIONS: The patient is a 65-year-old male who presents with his third recurrence of an incisional hernia. Surgical intervention with laparoscopic versus robotic and open techniques were reviewed. Placement of mesh was also reviewed. Benefits and risks were thoroughly described. Informed consent was obtained. DESCRIPTION OF PROCEDURE: The patient was brought into the operating room and laid in supine position. After general induction, the abdomen had been prepped and draped in standard sterile fashion. Ioban draping was also placed. Prior to incision, a timeout protocol was confirmed with surgical team regarding the patient's name including procedures to be performed. The robot was primed prior to the procedure. A field block using local anesthetic was placed along hernia site including the proposed port sites. Initial incision was made with an #11 blade along the left upper quadrant. A 0 degree 5 mm laparoscopic trocar entry was performed and insufflated. Three 8 mm ports were placed along the left lateral abdominal wall under direct localization after exchanging the 5-mm for an 8 mm port. Placements of the ports were 15 cm from the target anatomy and 10 cm apart. An accessory 12 mm port was placed at the right upper quadrant for exchange of mesh including sutures. The olooki Xi robot was previously primed, prepped and draped then docked from the right side of the patient onto the left side of the patient. I then sat at the robot Da Sandra Xi console where working arms of the robot including Bovie cautery connected to robotic scissors, needle team otr truck driver, and graspers placed by the law office assistant. Severe omental including peritoneal adhesions to the abdominal wall was found requiring over 30 minutes lysing adhesions using vessel sealer. Incarcerated omental contents were found along the midline defect including umbilicus. The defects were reduced of omental and preperitoneal fat. The fascial defect was 3 cm. The incarcerated contents were reduced as the peritoneal fat was cleaned from the abdominal wall. Next, hemostasis was checked with cautery. The hernia defects were oversewn using #1 nonabsorbable V-lock suture with fascial imbrication x 3. Next, ventralight ST mesh 11.4 cm was placed with the rough side towards the abdominal wall as to cover the epigastric including umbilical defect. 2-0 VLOC 9 inch sutures were used to fixate the mesh. A final endoscopic imaging was obtained. All instruments and pneumoperitoneum were evacuated from the abdominal cavity. The da Sandra Xi robot was undocked from the patient. I re-scrubbed into the case for closure of incisions. The fascia of the 12-mm port was probed and closed using 0 Vicryl and Jhony Woodson. The incisions were reapproximated using 4-0 Monocryl in an interrupted subcuticular fashion. Liquid glue was applied to the skin after cleansing the skin with normal saline and dilute hydrogen peroxide. An abdominal binder was placed. An umbilical dressing was placed prior. At the end of the procedure, needle, sponge, and instrument count had been verified correct by certified surgical technician. The patient was taken to the postanesthesia care unit in stable condition. Plan - Discharge Summary Discharge Rx Participant: Yes New Discharge Prescriptions: New Tamsulosin [Flomax] 0.4 mg PO DAILY #5 cap Simethicone [Gas-X] 125 mg PO AC-TID PRN #20 capsule PRN Reason: Pain Acetaminophen Tab [Tylenol Tab] 1,000 mg PO Q6HR PRN #30 tablet PRN Reason: Pain Ibuprofen [Motrin] 600 mg PO Q8HR PRN #30 tab PRN Reason: Pain Continue Multivitamins, Thera [Multivitamin (formulary)] 1 tab PO DAILY Spironolactone [Aldactone] 25 mg PO DAILY carvediloL [Coreg] 6.25 mg PO BID ALPRAZolam [Xanax] 0.5 mg PO HS PRN #0 PRN Reason: sleeping Aspirin [Adult Low Dose Aspirin EC] 81 mg PO DAILY Atorvastatin [Lipitor] 40 mg PO DAILY Losartan [Cozaar] 25 mg PO DAILY Discharge Medication List ALPRAZolam [Xanax] 0.5 mg PO HS PRN #0 07/01/17 [History] Aspirin [Adult Low Dose Aspirin EC] 81 mg PO DAILY 07/01/17 [History] Multivitamins, Thera [Multivitamin (formulary)] 1 tab PO DAILY 07/01/17 [History] Spironolactone [Aldactone] 25 mg PO DAILY 07/01/17 [History] carvediloL [Coreg] 6.25 mg PO BID 07/01/17 [History] Atorvastatin [Lipitor] 40 mg PO DAILY 11/02/17 [History] Losartan [Cozaar] 25 mg PO DAILY 02/18/21 [History] Acetaminophen Tab [Tylenol Tab] 1,000 mg PO Q6HR PRN #30 tablet 03/08/21 [Rx] Ibuprofen [Motrin] 600 mg PO Q8HR PRN #30 tab 03/08/21 [Rx] Simethicone [Gas-X] 125 mg PO AC-TID PRN #20 capsule 03/08/21 [Rx] Tamsulosin [Flomax] 0.4 mg PO DAILY #5 cap 03/08/21 [Rx] Follow up Appointment(s)/Referral(s): Elizabeth Le MD [STAFF PHYSICIAN] - 03/14/21 Patient Instructions/Handouts: *[facility] - Managing Your Pain After Surgery Without Opioids, Laparoscopic Herniorrhaphy (DC), Abdominal Binder (ED), Incisional Hernia (GEN), Ventral Hernia Repair (GEN) Activity/Diet/Wound Care/Special Instructions: Using antibacterial soap. No lifting over 4 pounds 2 weeks, Apr 08, 2021 May shower. No bathtub soaks for 2 weeks, Mar 22, 2021 Wear abdominal binder daily for comfort except for showering. Use ice along incisions for today to prevent swelling. Discharge Disposition: HOME SELF-CARE
== END 2021-03-08 13:29 | disposition home or self-care (01) ==
LOC: OR 06:37
PROVIDERS: ATTEND Surgery Plastic and Reconstructive Surgery
DX: K43.1 Incisional hernia with gangrene (principal); I11.0 Hypertensive heart disease with heart failure; I50.9 Heart failure, unspecified; E78.5 Hyperlipidemia, unspecified; F41.1 Generalized anxiety disorder; I49.9 Cardiac arrhythmia, unspecified; K21.9 Gastro-esophageal reflux disease without esophagitis; H90.2 Conductive hearing loss, unspecified; H40.9 Unspecified glaucoma; Z95.810 Presence of automatic (implantable) cardiac defibrillator
CPT/HCPCS: 49657; 49329; 64461; 76942; 80053; 85025; C1781; J2250; J1100; J0690; J2405; J2001; J3010; J2795; J1885; J2370; J0330; J2704; J1170; J1644

== ENCOUNTER → 2023-11-05 | Day surgery (SDC) | payer OTHER ==
[~2023-11-05] MED LIST changes: +ALPRAZolam 0.25 MG TAB PO PRN; +ALPRAZolam 0.5 MG TAB PO PRN; -DEXAMETHASONE SOD PHOSPHATE 4 MG/ML 1 ML VIAL IV ONE; +HEPARIN SODIUM 1,000 UN/ML (10ML VL) ONE; -HEPARIN SODIUM,PORCINE/PF 5,000 UNIT/0.5 ML SYRINGE SQ PRN; -LACTATED RINGERS 1,000 ML IV SCH; +LIDOCAINE 1% INJ 10MG/ML (20 ML MDV) ONE; +NITROGLYCERIN SL TABS 0.4 MG TAB SUBLINGUAL PRN; -ONDANSETRON 4 MG/2 ML VIAL IVP ONE; +RX INFO: IV CONTRAST WAS GIVEN 1 EACH MISC MISCELLANE PRN; +SODIUM CHLORIDE 0.9% 1,000 ML IV SCH; +VERAPAMIL 2.5 MG/ML 2 ML AMP ONE
[2023-11-05] MEDS: ASPIRIN 325 MG TAB PO ONE (06:44)
[2023-11-05] MEDS: SODIUM CHLORIDE 0.9% 1,000 ML in EMPTY BAG 1 BAG IV SCH (06:44)
[2023-11-05] MEDS: IV FLUID CONTINUATION 1,000 ML IV ONE (06:45)
[2023-11-05 06:53] VITALS: RESP 16; TEMP 98.5
[2023-11-05] MEDS: MIDAZOLAM 2 MG/2 ML VIAL IVP ONE (07:38)
[2023-11-05] MEDS: LIDOCAINE 1% INJ 10MG/ML (20 ML MDV) SQ ONE (07:39)
[2023-11-05] MEDS: VERAPAMIL SYRINGE (5 MG/10 ML) INTRAARTER ONE (07:41)
[2023-11-05] MEDS: HEPARIN SODIUM 1,000 UN/ML (10ML VL) IVP ONE (07:43)
[2023-11-05] MEDS: IOPAMIDOL-370 100ML BTL INJ ONE (07:50)
--- NOTE | 2023-11-05 07:56 | P.PCN ---
Date of Procedure: 11/05/23 Operative Findings: CARDIAC CATHETERIZATION PERFORMING PHYSICIAN: Kojo Carolina MD, RPVI PROCEDURE PERFORMED: 1. Selective right and left coronary angiogram 2. Left heart catheterization 3. Ultrasound-guided access of the right radial artery INDICATION: Newly diagnosis cardiomyopathy and abnormal myocardial perfusion imaging stress test COMPLICATION: None APPROACH: Right radial artery LEVEL OF SEDATION: Moderate with a sedation length of 12 minutes PROCEDURE DESCRIPTION: After obtaining an informed consent, the patient was brought to cardiac laborer poultry hatchery. Local anesthesia was performed using lidocaine subcutaneously. The right radial artery was cannulated using Seldinger technique, the guidewire passed easily, following that we advanced a 5-Bulgarian sheath dilator assembly, the wire and dilator were removed and sheath was flushed. Following that, 2 mg of verapamil along with 5000 unit heparin were given. Selective right and left coronary angiogram using a 6-Bulgarian JR4 and JL 3.5 catheters. Following that we did left heart catheterization using 6-Bulgarian pigtail catheter. The procedure was completed there was no complication. SELECTIVE CORONARY ANGIOGRAM: The right coronary artery: Large-caliber vessel and a dominant vessel. The PDA branch of the RCA has intermediate to severe lesion appears to be in the range of 60% Left main: Is angiographically normal The left circumflex: Large-caliber vessel codominant vessel appears to be angiographically normal The left anterior descending artery: Large caliber vessel with mild to moderate disease involving the proximal portion appears to be the same as before HEMODYNAMICS: The LVEDP was 12 mmHg with no significant gradient across aortic valve CONCLUSION: 1. Intermediate to severe lesion involving small to medium caliber PDA branch of the RCA appears to be the same as before 2. Mild to moderate disease involving the left anterior descending artery proximally appears to be also the same as before POSTPROCEDURE MANAGEMENT: Consider medical treatment at this point
[2023-11-05 12:49] VITALS: BP 138/75; PULSE 68
== END ==
LOC: CATHCVL 06:13
PROVIDERS: ATTEND Internal Medicine Interventional Cardiology
DX: I25.10 Atherosclerotic heart disease of native coronary artery without angina pectoris (principal); I42.8 Other cardiomyopathies; G47.33 Obstructive sleep apnea (adult) (pediatric); I10 Essential (primary) hypertension; E78.5 Hyperlipidemia, unspecified; E11.9 Type 2 diabetes mellitus without complications; Z79.82 Long term (current) use of aspirin; Z79.899 Other long term (current) drug therapy
CPT/HCPCS: 93458

== ENCOUNTER → 2023-12-30 | Outpatient (CLI) | payer OTHER ==
--- NOTE | 2023-12-30 09:47 | CT ---
EXAMINATION TYPE: CT pelvis wo con CT DLP: 790 mGycm, Automated exposure control for dose reduction was used. DATE OF EXAM: 12/30/2023 9:12 AM COMPARISON: CT abdomen pelvis 01/13/2019 CLINICAL INDICATION:Male, 68 years old with history of M25.551 M16.11 M25.552 S32.89XA M16.12; Left p osterior hip pain post fall No 3D imaging scanned on Room 2, Room 1 down TECHNIQUE: Standard CT of the pelvis without IV or oral contrast. Lack of IV or oral contrast limit s evaluation of solid and hollow organ viscera. Coronal and sagittal reformats were performed. FINDINGS: BLADDER: Unremarkable REPRODUCTIVE: Few small calcifications within the prostate gland. BOWEL: Distal colonic diverticulosis without evidence for acute diverticulitis. No evidence of bowel obstruction. PERITONEUM: No evidence of pneumoperitoneum or free fluid. VASCULATURE: Mild atherosclerotic calcification of the visualized arterial vasculature. MUSCULOSKELETAL: No acute osseous abnormalities. Degenerative changes of the bilateral SI joints with anterior bridging. Mild osteoarthritic changes of both hips with subchondral cystic changes and join t space narrowing. Degenerative disc disease L5-S1 with disc height loss and vacuum disc disease. LYMPH NODES: No gross evidence for lymphadenopathy. SOFT TISSUE/ABDOMINAL WALL: Postsurgical changes from left inguinal hernia repair. IMPRESSION: 1. No acute fracture or dislocation. 2. Colonic diverticulosis without evidence for acute diverticulitis. [facility], , 12/30/2023 9:45 AM
== END | disposition home or self-care (01) ==
LOC: RADCTMAIN 08:47
PROVIDERS: ATTEND Orthopaedic Surgery
CPT/HCPCS: 72192